=== PATIENT | female | born 1940 | race Two or more races ===

== ENCOUNTER 2022-12-06 18:32 | Emergency (ER) | payer OTHER ==
[~2022-12-06] VITALS: Ht 160 cm; Wt 61.2 kg
[2022-12-06] MEDS ORDERED: OMEPRAZOLE20 MG PO (18:59)
[2022-12-06] MEDS ORDERED: METHOTREXATE2.5 MG PO (18:59)
[2022-12-06] MEDS ORDERED: FOLIC ACID1 MG PO (18:59)
[2022-12-06] MEDS ORDERED: RAYOS5 MG PO (19:00)
[2022-12-06 20:51] LABS: HEMOGLOBIN 15.5 g/dL (12.0-15.00); MEAN CELL VOLUME 89.4 fL (80.00-100.00); MEAN CORPUSCULAR HEMOGLOBIN 29.5 pg (27.00-32.0); RED BLOOD COUNT 5.26 M/uL (4.00-6.00); RED CELL DISTRIBUTION WIDTH 17.3 % (11.5-14.5)
[2022-12-06 21:07] LABS: PLATELET COUNT 118 K/uL (150-450)
[2022-12-06 21:25] LABS: CREATININE SERUM 0.89 mg/dL (0.55-1.02); GFR 60.72; POTASSIUM 4.51 mEq/L (3.5-5.1)
[2022-12-06 22:05] LABS: ABG PH 7.456 (7.35-7.45); ABG PO2 89.4 mmHg (80-100); ABG pCO2 31.5 mmHg (35-45)
[2022-12-06 22:06] LABS: BASE EXCESS -1.2 mmol/l; BICARBONATE 21.7 mmol/l (23-25); SaO2 97.3 %; Tco2 22.6 mmol/l
[2022-12-06 22:07] LABS: allen test NO SATISFACTORY; o2 21 %; puncture site RADIAL LEFT
== END 2022-12-06 22:50 | disposition home or self-care (01) ==
LOC: ER 18:32
PROVIDERS: General Practice
DX: J10.1 Influenza due to other identified influenza virus with other respiratory manifestations (principal); Z88.8 Allergy status to other drugs, medicaments and biological substances; Z20.822 Contact with and (suspected) exposure to COVID-19
CPT/HCPCS: 36415; 71046; 71250; 82803; 94640; 96365; 99284; J0696; J2930

== ENCOUNTER 2023-12-12 07:04 | Inpatient (IN) | payer OTHER ==
[~2023-12-12] VITALS: Ht 167.6 cm; Wt 72.6 kg
[~2023-12-12 07:04] MED LIST: FOLIC ACID1 MG PO; METHOTREXATE2.5 MG PO; OMEPRAZOLE20 MG PO; RAYOS5 MG PO
[2023-12-12] MEDS ORDERED: 0.9 % SODIUM CHLORIDE 1,000 ML IV STA (07:28)
--- NOTE | 2023-12-12 07:29 | NUR ---
SE RECIBE PACIENTE FEMENINA LETARGICA EN AMBULANCIA EN COMPANIA DE FAMILIAR EL CUAL INDICA QUE ESTABA BANANDO LA PACIENTE Y ESTA SUFRIO DESMAYO. REFIERE QUE PACIENTE LUEGO DE LO SUCEDIDO COMENZO CON DIFICULTAD AL RESPIRAR. FAMILIAR INDICA QUE PACIENTE NO PRESENTABA SIGNOS NI SINTOMAS DE ENFERMEDAD EN LOS ULTIMOS ORTIZ. PACIENTE AL MOMENTO DE LA LLEGADA A ER SE ENCUENTRA CON JUNI NON REBREATHING MASK AL 100%. SE OBSERVA RESPIRANDO CON USO DE MUSCULOS ACCESORIOS. SE UBICA A PACIENTE EN UNIDAD DE DOLOR DE PECHO, SE CONECTA A MONITOR CARDIACO Y OXIMETRIA DE PULSO.
--- NOTE | 2023-12-12 07:40 | NUR ---
EVALUA PTE. SE ORIENTA A FAMILIAR SOBRE TRATAMIENTO MEDICO, REFIERE ENTENDER. SE REALIZAN MUESTRAS DE LABORATORIO BAJO MEDIDAS ASEPTICAS. SE ADMINISTRA IV'S MINO ORDEN MEDICA. SE INSERTA SONDA URINARIA BAJO MEDIDAS ESTERILES. SE NOTIFICA ABG Y GARY X.
[2023-12-12 07:58] LABS: HEMATOCRIT 47.7 % (36.0-45.00); HEMOGLOBIN 15.3 g/dL (12.0-15.00); MEAN CELL VOLUME 89.3 fL (80.00-100.00); MEAN CORPUSCULAR HEMOGLOBIN 28.7 pg (27.00-32.0); MEAN CORPUSCULAR HGB CONC 32.1 g/dl (32.0-36.0); PLATELET COUNT 176 K/uL (150-450); RED BLOOD COUNT 5.34 M/uL (4.00-6.00)
[2023-12-12 08:15] LABS: ALBUMIN 2.6 gm/dL (3.4-5.0); BILIRUBIN TOTAL 2.34 mg/dL (0.3-1.2); CALCIUM 9.3 mg/dL (8.5-10.1); CREATININE SERUM 1.77 mg/dL (0.55-1.02); GFR 27.4; GLOBULINA 3.8 G/DL (2.4-3.5); POTASSIUM 4.52 mEq/L (3.5-5.1); TOTAL PROTEIN 6.4 gm/dL (6.4-8.2)
[2023-12-12 08:17] LABS: INR 1.15; PARTIAL THROMBOPLASTIN TIME 25.3 SECONDS (22.0-34.0); PROTHROMBIN TIME 12.4 SECONDS (9.0-11.5)
[2023-12-12] MEDS ORDERED: PIPERACILLIN/TAZOBACTAM SODIUM 3.375 GM VIAL IV STA (08:23)
[2023-12-12] MEDS ORDERED: LEVALBUTEROL HCL 1.25 MG/3 ML SOLUTION IH STA (08:24)
--- NOTE | 2023-12-12 08:30 | NUR ---
RE-EVALUA PACIENTE. SE ORIENTA A FAMILIAR SOBRE TX MEDICO, REFIERE ENTENDER. SE ADMINISTRAN MEDICAMENTOS MINO ORDEN MEDICA. SE MANTIENE BAJO OBSERVACION.
[2023-12-12] MEDS ORDERED: METHYLPREDNISOLONE SOD SUCC 125 MG VIAL IV STA (08:31)
[2023-12-12 09:04] LABS: ABG PH 7.372 (7.35-7.45); BASE EXCESS -7.3 mmol/l; BICARBONATE 16.4 mmol/l (23-25); SaO2 97.2 %; Tco2 17.3 mmol/l
[2023-12-12 09:08] LABS: PH,URINE 5.5 (5.0-8.0); URINE APPEARANCE Cloudy; URINE BILIRRUBIN Small (NEGATIVE); URINE COLOR Dark Yellow; URINE GLUCOSE Negative (NEGATIVE); URINE KETONE Trace (NEGATIVE); URINE LEUKOCYTE Small; URINE NITRATE Negative; URINE PROTEIN 30 (NEGATIVE)
[2023-12-12] MEDS ORDERED: SODIUM BICARBONATE 1 MEQ/ML DISP.SYRIN 50ML IV STA (09:08)
[2023-12-12 09:10] LABS: URINE BACTERIA 45.3 uL (0.0-1933); URINE CAST 8.55 uL (0.0-1.40); URINE RBC 50.5 uL (0.0-20.8); URINE WBC 10.3 uL (0.0-23.2)
[2023-12-12 09:26] LABS: URINE BLOOD Trace
[2023-12-12] MEDS ORDERED: VANCOMYCIN HCL 1,000 MG VIAL IV STA (09:47)
[2023-12-12 10:49] LABS: allen test SATISFACTORY; o2 32 %; puncture site RADIAL LEFT
--- NOTE | 2023-12-12 11:15 | NUR ---
SE TRASLADA PACIENTE A ESTUDIO (CT).PACIENTE TOLERA SIN CAMBIOS EN CONDICION MEDICA.
--- NOTE | 2023-12-12 14:37 | NUR ---
SE RECIBE PTE ALERTA Y ACTIVA EN COMPANIA DE FAMILIAR EN CAMA CON BARANDAS ELEVADAS,CONECTADA A MONITOR CARDIACO Y OXIMETRIA,NO PRESENTA DIFICULTAD RESP CON CANULA NASAL @ 2LTS.NO REFIERE DOLOR,AREAS DE VENOPUNCION PATENTES Y LIBRES DE EDEMA CON FLUIDOS DE MANTENIMIENTO BAJANDO SIN DIFICULTAD.GARZA CON ORINA AMARILLA INTENSA Y SEDIMENTACION.SE ELSIE S/V Y SE CIERRA BAJO OBSERVACION POR CAMBIOS.PENDIENTE A EVALUACION DE MEDICINA INTERNA.
--- NOTE | 2023-12-12 14:44 | NUR ---
PTE CON DOCUMENTO DNR/DNI FIRMADO.
[2023-12-12 16:54] LABS: HEMATOCRIT 44.9 % (36.0-45.00); HEMOGLOBIN 14.6 g/dL (12.0-15.00); MEAN CORPUSCULAR HEMOGLOBIN 28.7 pg (27.00-32.0); MEAN CORPUSCULAR HGB CONC 32.6 g/dl (32.0-36.0); RED CELL DISTRIBUTION WIDTH 19.7 % (11.5-14.5)
[2023-12-12 17:08] LABS: PLATELET COUNT 92 K/uL (150-450)
[2023-12-12] MEDS ORDERED: MEROPENEM 500 MG/VIAL VIAL IV SCH (17:13)
[2023-12-12] MEDS ORDERED: ONDANSETRON HCL 4 MG in 0.9 % SODIUM CHLORIDE 50 ML IV PRN (17:15)
[2023-12-12] MEDS ORDERED: 0.9 % SODIUM CHLORIDE 1,000 ML IV SCH (17:15)
[2023-12-12] MEDS ORDERED: MEPERIDINE HCL/PF 25 MG/ML VIAL IM PRN (17:15)
[2023-12-12] MEDS ORDERED: ACETAMINOPHEN 500 MG GEL..CAP PO PRN (17:15)
[2023-12-12 19:56] VITALS: BP 126/60; O2SAT 96
[2023-12-13] VITALS (11 sets, daily range): BP systolic 90–139; BP diastolic 47–70; O2SAT 94–98
[2023-12-13] MEDS ORDERED: PREDNISONE 5 MG TABLET PO SCH (09:00)
[2023-12-13] MEDS ORDERED: VANCOMYCIN HCL 500 MG VIAL IU SCH (09:00)
[2023-12-13] MEDS ORDERED: ENOXAPARIN SODIUM 30 MG/0.3 ML SYRINGE SUBCUTANEO SCH (09:00)
[2023-12-13] MEDS ORDERED: PANTOPRAZOLE SODIUM 40 MG/VIAL VIAL IV SCH (09:00)
[2023-12-13 12:37] LABS: ALBUMIN 1.5 gm/dL (3.4-5.0); BILIRUBIN TOTAL 1.42 mg/dL (0.3-1.2); BILIRUBIN,CONJUGATED 1.03 mg/dL (0.0-0.2); BILIRUBIN,UNCONJUGATED 0.39 mg/dL (0.0-0.6); MAGNESIUM 1.6 mg/dL (1.8-2.4); PHOSPHOROUS 2.8 mg/dL (2.5-4.9); TOTAL PROTEIN 4.1 gm/dL (6.4-8.2)
[2023-12-13 12:40] LABS: C-REACTIVE PROTEIN 15.6 MG/DL (0.00-0.29)
[2023-12-13 13:56] LABS: TSH 0.815 uIU/mL (0.358-3.74)
[2023-12-14 01:54] VITALS: BP 116/69; O2SAT 99
[2023-12-14 06:55] LABS: HEMATOCRIT 34.3 % (36.0-45.00); HEMOGLOBIN 11.2 g/dL (12.0-15.00); MEAN CELL VOLUME 88.2 fL (80.00-100.00); MEAN CORPUSCULAR HEMOGLOBIN 28.6 pg (27.00-32.0); MEAN CORPUSCULAR HGB CONC 32.5 g/dl (32.0-36.0); RED CELL DISTRIBUTION WIDTH 19.4 % (11.5-14.5)
[2023-12-14 07:04] LABS: ALBUMIN 1.7 gm/dL (3.4-5.0); BILIRUBIN TOTAL 1.43 mg/dL (0.3-1.2); CREATININE SERUM 0.55 mg/dL (0.55-1.02); GFR 105.56; POTASSIUM 3.48 mEq/L (3.5-5.1); TOTAL PROTEIN 4.7 gm/dL (6.4-8.2)
[2023-12-14 07:17] LABS: PLATELET COUNT 73 K/uL (150-450)
[2023-12-14 07:30] LABS: C-REACTIVE PROTEIN 15.6 MG/DL (0.00-0.29)
[2023-12-14] MEDS ORDERED: DEXTROSE 5 %-0.45 % SOD CHLORD 1,000 ML IV SCH (07:45)
[2023-12-14 09:26] VITALS: BP 114/76; O2SAT 100
[2023-12-14] MEDS ORDERED: MEROPENEM 500 MG/VIAL VIAL IV SCH (14:00)
[2023-12-14 14:31] LABS: PLATELET ESTIMATE DECREASED (NORMAL)
[2023-12-14 15:51] VITALS: BP 125/77; O2SAT 98
[2023-12-14] MEDS ORDERED: POTASSIUM PHOS,M-BASIC-D-BASIC 18 MM in 0.9 % SODIUM CHLORIDE 250 ML IV ONE (16:00)
[2023-12-14 16:54] LABS: LIPASE 20 U/L (13-75)
[2023-12-14 17:20] LABS: AMYLASE 17 U/L (25-115)
[2023-12-14 23:44] VITALS: BP 122/79; O2SAT 100
[2023-12-15 09:07] VITALS: BP 128/47; O2SAT 99
[2023-12-15 15:58] VITALS: O2SAT 100
[2023-12-15 16:52] VITALS: BP 145/70
[2023-12-15 19:12] VITALS: O2SAT 90
[2023-12-16] VITALS (7 sets, daily range): BP systolic 110–139; BP diastolic 69–73; O2SAT 97–100
[2023-12-16 08:41] LABS: HEMATOCRIT 35.4 % (36.0-45.00); HEMOGLOBIN 11.6 g/dL (12.0-15.00); MEAN CELL VOLUME 87.9 fL (80.00-100.00); MEAN CORPUSCULAR HEMOGLOBIN 28.9 pg (27.00-32.0); MEAN CORPUSCULAR HGB CONC 32.9 g/dl (32.0-36.0); RED BLOOD COUNT 4.03 M/uL (4.00-6.00); RED CELL DISTRIBUTION WIDTH 19.7 % (11.5-14.5)
[2023-12-16 08:43] LABS: PLATELET COUNT 76 K/uL (150-450)
[2023-12-16 08:50] LABS: ALBUMIN 1.8 gm/dL (3.4-5.0); BILIRUBIN TOTAL 1.6 mg/dL (0.3-1.2); CALCIUM 7.6 mg/dL (8.5-10.1); CREATININE SERUM 0.41 mg/dL (0.55-1.02); GFR 148.15; GLOBULINA 2.5 G/DL (2.4-3.5); MAGNESIUM 1.7 mg/dL (1.8-2.4); POTASSIUM 3.88 mEq/L (3.5-5.1); TOTAL PROTEIN 4.3 gm/dL (6.4-8.2)
[2023-12-16] MEDS ORDERED: POTASSIUM PHOS,M-BASIC-D-BASIC 45mM/15ml VIAL IV NR (12:00)
[2023-12-17] VITALS (7 sets, daily range): BP systolic 99–130; BP diastolic 79–80; O2SAT 95–100
[2023-12-17 09:02] LABS: HEMATOCRIT 33.9 % (36.0-45.00); HEMOGLOBIN 10.9 g/dL (12.0-15.00); MEAN CELL VOLUME 89.2 fL (80.00-100.00); MEAN CORPUSCULAR HEMOGLOBIN 28.6 pg (27.00-32.0); RED CELL DISTRIBUTION WIDTH 19.5 % (11.5-14.5)
[2023-12-17 09:55] LABS: PLATELET COUNT 94 K/uL (150-450)
[2023-12-17 10:05] LABS: ALBUMIN 1.7 gm/dL (3.4-5.0); BILIRUBIN TOTAL 1.29 mg/dL (0.3-1.2); CALCIUM 7.6 mg/dL (8.5-10.1); CREATININE SERUM 0.49 mg/dL (0.55-1.02); GFR 120.61; GLOBULINA 2.4 G/DL (2.4-3.5); MAGNESIUM 1.6 mg/dL (1.8-2.4); PHOSPHOROUS 2.3 mg/dL (2.5-4.9); POTASSIUM 4.23 mEq/L (3.5-5.1); TOTAL PROTEIN 4.1 gm/dL (6.4-8.2)
[2023-12-17] MEDS ORDERED: MAGNESIUM SULFATE 1,000 MG in 0.9 % SODIUM CHLORIDE 50 ML IV ONE (19:45)
[2023-12-17] MEDS ORDERED: POTASSIUM PHOS,M-BASIC-D-BASIC 9 MM in 0.9 % SODIUM CHLORIDE 250 ML IV ONE (19:45)
[2023-12-18] VITALS (8 sets, daily range): BP systolic 105–140; BP diastolic 68–84; O2SAT 98–100
[2023-12-19] VITALS (9 sets, daily range): BP systolic 125–140; BP diastolic 77–86; O2SAT 93–100
[2023-12-19] MEDS ORDERED: LEVALBUTEROL HCL 0.63 MG/3 ML SOLUTION IH STA ×2 (07:47→19:05)
[2023-12-19] MEDS ORDERED: LEVALBUTEROL HCL 0.63 MG/3 ML SOLUTION IH SCH (08:00)
[2023-12-19] MEDS ORDERED: FUROsemide 20 MG/2 ML VIAL IV STA (08:34)
[2023-12-19 09:41] LABS: ABG pCO2 32.2 mmHg (35-45); BASE EXCESS 0.1 mmol/l; BICARBONATE 22.9 mmol/l (23-25); SaO2 97.9 %; Tco2 23.9 mmol/l
[2023-12-19 09:42] LABS: allen test SATISFACTORY; o2 32 %; puncture site RADIAL RIGHT
[2023-12-19 15:22] LABS: HEMATOCRIT 35.9 % (36.0-45.00); HEMOGLOBIN 11.6 g/dL (12.0-15.00); MEAN CELL VOLUME 87.5 fL (80.00-100.00); MEAN CORPUSCULAR HEMOGLOBIN 28.2 pg (27.00-32.0); MEAN CORPUSCULAR HGB CONC 32.2 g/dl (32.0-36.0); PLATELET COUNT 140 K/uL (150-450); RED BLOOD COUNT 4.11 M/uL (4.00-6.00)
[2023-12-19 15:58] LABS: ALBUMIN 1.9 gm/dL (3.4-5.0); BILIRUBIN TOTAL 1.83 mg/dL (0.3-1.2); CALCIUM 7.9 mg/dL (8.5-10.1); CREATININE SERUM 0.54 mg/dL (0.55-1.02); GFR 107.82; GLOBULINA 2.8 G/DL (2.4-3.5); MAGNESIUM 1.6 mg/dL (1.8-2.4); PHOSPHOROUS 2.6 mg/dL (2.5-4.9); POTASSIUM 4.25 mEq/L (3.5-5.1); TOTAL PROTEIN 4.7 gm/dL (6.4-8.2)
[2023-12-19 16:07] LABS: C-REACTIVE PROTEIN 8.87 MG/DL (0.00-0.29)
[2023-12-19] MEDS ORDERED: VANCOMYCIN HCL 1,000 MG VIAL IV SCH (17:00)
[2023-12-19] MEDS ORDERED: MAGNESIUM SULFATE IN WATER 4 GM/100 ML PIGGYBACK IV ONE (19:30)
[2023-12-20] VITALS (9 sets, daily range): BP systolic 113–145; BP diastolic 68–80; O2SAT 97–100
[2023-12-20] MEDS ORDERED: LEVALBUTEROL HCL 0.63 MG/3 ML SOLUTION IH SCH
[2023-12-20 11:17] LABS: HEMATOCRIT 31.8 % (36.0-45.00); HEMOGLOBIN 10.2 g/dL (12.0-15.00); MEAN CELL VOLUME 88.9 fL (80.00-100.00); MEAN CORPUSCULAR HEMOGLOBIN 28.5 pg (27.00-32.0); MEAN CORPUSCULAR HGB CONC 32.1 g/dl (32.0-36.0); PLATELET COUNT 162 K/uL (150-450); RED BLOOD COUNT 3.57 M/uL (4.00-6.00); RED CELL DISTRIBUTION WIDTH 19.3 % (11.5-14.5)
[2023-12-20 11:36] LABS: ALBUMIN 1.7 gm/dL (3.4-5.0); BILIRUBIN TOTAL 1.59 mg/dL (0.3-1.2); CALCIUM 7.5 mg/dL (8.5-10.1); CREATININE SERUM 0.46 mg/dL (0.55-1.02); GFR 129.73; GLOBULINA 2.5 G/DL (2.4-3.5); MAGNESIUM 2.1 mg/dL (1.8-2.4); PHOSPHOROUS 2.4 mg/dL (2.5-4.9); POTASSIUM 3.81 mEq/L (3.5-5.1); TOTAL PROTEIN 4.2 gm/dL (6.4-8.2)
[2023-12-20] MEDS ORDERED: FUROsemide 20 MG/2 ML VIAL IV SCH (13:25)
[2023-12-20] MEDS ORDERED: MAGNESIUM SULFATE/D5W 100 ML IV NR (16:15)
[2023-12-21] VITALS (8 sets, daily range): BP systolic 117–151; BP diastolic 78–122; O2SAT 97–100
[2023-12-21] MEDS ORDERED: MAGNESIUM SULFATE/D5W 100 ML IV NR (15:15)
[2023-12-21] MEDS ORDERED: CHLORHEXIDINE GLUCONATE 15ML BRUSH KIT MM SCH (17:00)
[2023-12-21] MEDS ORDERED: EPINEPHRINE HCL/PF 1 MG/ML AMPUL IV PUSH ONE ×2 (17:00)
[2023-12-21] MEDS ORDERED: SODIUM BICARBONATE 1 MEQ/ML DISP.SYRIN 50ML IV ONE (17:00)
[2023-12-21] MEDS ORDERED: PROPOFOL 100 ML IV SCH ×2 (17:00→17:30)
[2023-12-21] MEDS ORDERED: PROPOFOL 10 MG/1 ML VIAL 50ML IV SCH (17:00)
[2023-12-21] MEDS ORDERED: POLYVINYL ALCOHOL 15 ML DROPS OP SCH (17:00)
[2023-12-21 19:24] LABS: ABG PH 7.343 (7.35-7.45); ABG PO2 113.3 mmHg (80-100); BICARBONATE 23.9 mmol/l (23-25); Tco2 25.3 mmol/l
[2023-12-21 19:25] LABS: allen test NO SATISFACTORY; o2 100 %; puncture site RADIAL RIGHT
[2023-12-21] MEDS ORDERED: LORATADINE 10 MG TABLET PO SCH (21:00)
[2023-12-22] VITALS (9 sets, daily range): BP systolic 110–180; BP diastolic 64–90; O2SAT 99–100
[2023-12-22] MEDS ORDERED: METHYLPREDNISOLONE SOD SUCC 40 MG VIAL IV SCH (13:53)
[2023-12-22 14:06] LABS: ABG PH 7.418 (7.35-7.45); ABG pCO2 35.1 mmHg (35-45); BASE EXCESS -1.7 mmol/l; BICARBONATE 22.2 mmol/l (23-25); Tco2 23.2 mmol/l; allen test SATISFACTORY; o2 100 %; puncture site RADIAL LEFT
[2023-12-22] MEDS ORDERED: RINGERS SOLUTION,LACTATED 1,000 ML IV SCH (15:45)
[2023-12-22 21:30] LABS: HEMATOCRIT 36.1 % (36.0-45.00); HEMOGLOBIN 11.2 g/dL (12.0-15.00); MEAN CELL VOLUME 88.7 fL (80.00-100.00); MEAN CORPUSCULAR HEMOGLOBIN 27.4 pg (27.00-32.0); MEAN CORPUSCULAR HGB CONC 30.9 g/dl (32.0-36.0); RED BLOOD COUNT 4.07 M/uL (4.00-6.00); RED CELL DISTRIBUTION WIDTH 19.1 % (11.5-14.5)
[2023-12-22 21:31] LABS: PLATELET COUNT 118 K/uL (150-450)
[2023-12-22 22:02] LABS: ALBUMIN 1.6 gm/dL (3.4-5.0); BILIRUBIN TOTAL 2.12 mg/dL (0.3-1.2); CALCIUM 8.1 mg/dL (8.5-10.1); CREATININE SERUM 1.87 mg/dL (0.55-1.02); GFR 25.71; GLOBULINA 3.3 G/DL (2.4-3.5); POTASSIUM 4.88 mEq/L (3.5-5.1); TOTAL PROTEIN 4.9 gm/dL (6.4-8.2)
[2023-12-22 22:09] LABS: BILIRUBIN,CONJUGATED 1.01 mg/dL (0.0-0.2); BILIRUBIN,UNCONJUGATED 1.11 mg/dL (0.0-0.6)
[2023-12-23] VITALS (11 sets, daily range): BP systolic 60–152; BP diastolic 40–90; O2SAT 90–100
[2023-12-23] MEDS ORDERED: NOREPINEPHRINE BITARTRATE 1 MG/ML AMPUL IV SCH (04:15)
[2023-12-23 11:01] LABS: HEMOGLOBIN 11.4 g/dL (12.0-15.00); MEAN CELL VOLUME 86.2 fL (80.00-100.00); MEAN CORPUSCULAR HGB CONC 32.5 g/dl (32.0-36.0); PLATELET COUNT 207 K/uL (150-450); RED BLOOD COUNT 4.06 M/uL (4.00-6.00); RED CELL DISTRIBUTION WIDTH 19.3 % (11.5-14.5)
[2023-12-23 11:15] LABS: ALBUMIN 1.8 gm/dL (3.4-5.0); BILIRUBIN TOTAL 1.87 mg/dL (0.3-1.2); CALCIUM 7.8 mg/dL (8.5-10.1); CREATININE SERUM 1.95 mg/dL (0.55-1.02); GFR 24.5; GLOBULINA 3.2 G/DL (2.4-3.5); MAGNESIUM 2.2 mg/dL (1.8-2.4); POTASSIUM 4.32 mEq/L (3.5-5.1)
[2023-12-23 11:22] LABS: CKMB 1.4 NG/ML (0.5-3.6)
[2023-12-23] MEDS ORDERED: HYDROCORTISONE SODIUM SUCC/PF 100 MG VIAL IV STA (12:14)
[2023-12-23] MEDS ORDERED: VASOPRESSIN 20 UNITS in 0.9 % SODIUM CHLORIDE 250 ML IV SCH (12:15)
[2023-12-23] MEDS ORDERED: METRONIDAZOLE/SODIUM CHLORIDE 100 ML IV SCH ×2 (12:26→13:00)
[2023-12-23 12:27] LABS: ABG PH 7.432 (7.35-7.45); ABG PO2 177.6 mmHg (80-100); ABG pCO2 29.1 mmHg (35-45); BASE EXCESS -3.9 mmol/l; BICARBONATE 18.9 mmol/l (23-25); SaO2 99.6 %; Tco2 19.8 mmol/l
[2023-12-23 12:28] LABS: allen test SATISFACTORY; o2 70 %; puncture site RADIAL LEFT
[2023-12-23] MEDS ORDERED: 0.9 % SODIUM CHLORIDE 1,000 ML IV SCH (12:30)
[2023-12-23] MEDS ORDERED: LINEZOLID IN DEXTROSE 5% 600 MG/300 ML PIGGYBAG IV NR (13:00)
[2023-12-23] MEDS ORDERED: NOREPINEPHRINE BITARTRATE 8 MG in DEXTROSE 5 % IN WATER 250 ML IV SCH (13:00)
[2023-12-23] MEDS ORDERED: DIPHENHYDRAMINE HCL 50 MG/ML VIAL 1ML IV SCH (15:30)
[2023-12-23] MEDS ORDERED: levoFLOXacin IN DEXTROSE 5 % 150 ML IV SCH (15:30)
[2023-12-23] MEDS ORDERED: MEROPENEM 500 MG/VIAL VIAL IV SCH ×2 (17:00→21:00)
[2023-12-23] MEDS ORDERED: HYDROCORTISONE SODIUM SUCC/PF 50 MG/ML ML IV SCH (20:00)
[2023-12-23] MEDS ORDERED: LINEZOLID IN DEXTROSE 5% 300 ML IV SCH (21:00)
[2023-12-24] VITALS (10 sets, daily range): BP systolic 120–168; BP diastolic 70–94; O2SAT 92–100
[2023-12-25] VITALS (7 sets, daily range): BP systolic 131–150; BP diastolic 72–80; O2SAT 97–100
[2023-12-25] MEDS ORDERED: ENOXAPARIN SODIUM 60 MG/0.6 ML SYRINGE SUBCUTANEO SCH (09:00)
[2023-12-25 10:03] LABS: CORTISOL 27.59 ug/dl
[2023-12-25 10:10] LABS: PROCALCITONIN 20.43 ng/ml (0.020-0.080)
[2023-12-25 11:09] LABS: ABG PH 7.333 (7.35-7.45); ABG PO2 417.7 mmHg (80-100); ABG pCO2 34.1 mmHg (35-45)
[2023-12-25 11:10] LABS: BASE EXCESS -7.2 mmol/l; BICARBONATE 17.7 mmol/l (23-25); Tco2 18.8 mmol/l; allen test SATISFACTORY; o2 70 %; puncture site RADIAL LEFT
[2023-12-25 16:06] LABS: HEMATOCRIT 31.9 % (36.0-45.00); HEMOGLOBIN 10.1 g/dL (12.0-15.00); MEAN CELL VOLUME 87.2 fL (80.00-100.00); MEAN CORPUSCULAR HEMOGLOBIN 27.7 pg (27.00-32.0); MEAN CORPUSCULAR HGB CONC 31.8 g/dl (32.0-36.0); PLATELET COUNT 165 K/uL (150-450); RED BLOOD COUNT 3.66 M/uL (4.00-6.00); RED CELL DISTRIBUTION WIDTH 18.4 % (11.5-14.5)
[2023-12-25 16:26] LABS: ALBUMIN 1.7 gm/dL (3.4-5.0); BILIRUBIN TOTAL 1.89 mg/dL (0.3-1.2); CALCIUM 7.7 mg/dL (8.5-10.1); CREATININE SERUM 1.83 mg/dL (0.55-1.02); GFR 26.36; POTASSIUM 4.22 mEq/L (3.5-5.1); TOTAL PROTEIN 4.7 gm/dL (6.4-8.2)
[2023-12-25 23:19] LABS: PH,URINE 5.5 (5.0-8.0); URINE APPEARANCE Cloudy; URINE BILIRRUBIN Small (NEGATIVE); URINE BLOOD Small; URINE COLOR Dark Yellow; URINE GLUCOSE Negative (NEGATIVE); URINE KETONE Trace (NEGATIVE); URINE LEUKOCYTE Trace; URINE NITRATE Negative
[2023-12-25 23:23] LABS: URINE BACTERIA 154.9 uL (0.0-1933); URINE CAST 10.38 uL (0.0-1.40); URINE EPITHELIAL CELLS 29.6 uL (0.0-38.8); URINE RBC 86.2 uL (0.0-20.8); URINE WBC 60.1 uL (0.0-23.2)
[2023-12-26] VITALS (15 sets, daily range): BP systolic 99–154; BP diastolic 65–106; O2SAT 90–100
[2023-12-26 00:21] LABS: URINE PROTEIN 100 (NEGATIVE)
[2023-12-26 05:08] LABS: MEAN CELL VOLUME 87.5 fL (80.00-100.00); MEAN CORPUSCULAR HGB CONC 32.3 g/dl (32.0-36.0); RED BLOOD COUNT 3.77 M/uL (4.00-6.00); RED CELL DISTRIBUTION WIDTH 18.7 % (11.5-14.5)
[2023-12-26 05:34] LABS: HEMOGLOBIN 10.6 g/dL (12.0-15.00); MEAN CORPUSCULAR HEMOGLOBIN 28.1 pg (27.00-32.0); PLATELET COUNT 131 K/uL (150-450)
[2023-12-26 05:38] LABS: ALBUMIN 1.7 gm/dL (3.4-5.0); BILIRUBIN TOTAL 2.14 mg/dL (0.3-1.2); CALCIUM 7.7 mg/dL (8.5-10.1); CREATININE SERUM 1.95 mg/dL (0.55-1.02); GFR 24.5; GLOBULINA 2.9 G/DL (2.4-3.5); MAGNESIUM 1.7 mg/dL (1.8-2.4); PHOSPHOROUS 3.9 mg/dL (2.5-4.9); POTASSIUM 4.47 mEq/L (3.5-5.1); TOTAL PROTEIN 4.6 gm/dL (6.4-8.2)
[2023-12-26 11:59] LABS: ABG PH 7.421 (7.35-7.45); ABG PO2 284.3 mmHg (80-100); ABG pCO2 24.8 mmHg (35-45); BASE EXCESS -6.7 mmol/l; BICARBONATE 15.8 mmol/l (23-25); SaO2 99.9 %; Tco2 16.5 mmol/l; allen test SATISFACTORY; o2 50 %; puncture site RADIAL RIGHT
[2023-12-26] MEDS ORDERED: SODIUM CHLORIDE 0.45 % 1,000 ML IV SCH (14:00)
[2023-12-26] MEDS ORDERED: MAGNESIUM SULFATE/D5W 100 ML IV NR (14:00)
[2023-12-27] VITALS (23 sets, daily range): BP systolic 79–131; BP diastolic 42–92; O2SAT 97–100
[2023-12-27 08:12] LABS: HEMATOCRIT 30.7 % (36.0-45.00); MEAN CELL VOLUME 87.1 fL (80.00-100.00); MEAN CORPUSCULAR HEMOGLOBIN 27.7 pg (27.00-32.0); MEAN CORPUSCULAR HGB CONC 31.8 g/dl (32.0-36.0); RED BLOOD COUNT 3.53 M/uL (4.00-6.00); RED CELL DISTRIBUTION WIDTH 18.8 % (11.5-14.5)
[2023-12-27 08:25] LABS: PLATELET COUNT 96 K/uL (150-450)
[2023-12-27 08:26] LABS: HEMOGLOBIN 9.8 g/dL (12.0-15.00)
[2023-12-27 08:29] LABS: ALBUMIN 1.6 gm/dL (3.4-5.0); BILIRUBIN TOTAL 2.38 mg/dL (0.3-1.2); CALCIUM 7.6 mg/dL (8.5-10.1); CREATININE SERUM 1.82 mg/dL (0.55-1.02); GFR 26.53; GLOBULINA 2.5 G/DL (2.4-3.5); PHOSPHOROUS 3.8 mg/dL (2.5-4.9); POTASSIUM 4.12 mEq/L (3.5-5.1); TOTAL PROTEIN 4.1 gm/dL (6.4-8.2)
[2023-12-27 10:40] LABS: ABG PH 7.385 (7.35-7.45); ABG PO2 145.3 mmHg (80-100); ABG pCO2 26.1 mmHg (35-45); BASE EXCESS -7.9 mmol/l; BICARBONATE 15.2 mmol/l (23-25); SaO2 99.1 %; allen test SATISFACTORY; o2 35 %; puncture site RADIAL RIGHT
[2023-12-27] MEDS ORDERED: 0.9 % SODIUM CHLORIDE 1,000 ML IV SCH (14:30)
[2023-12-27] MEDS ORDERED: AMIODARONE HCL 50 MG/ML AMPUL IV SCH (23:00)
[2023-12-28] VITALS (19 sets, daily range): BP systolic 74–114; BP diastolic 35–87; O2SAT 97–100
[2023-12-28 07:19] LABS: HEMATOCRIT 26.9 % (36.0-45.00); MEAN CELL VOLUME 87.3 fL (80.00-100.00); MEAN CORPUSCULAR HGB CONC 32.5 g/dl (32.0-36.0); RED BLOOD COUNT 3.08 M/uL (4.00-6.00)
[2023-12-28 07:21] LABS: MEAN CORPUSCULAR HEMOGLOBIN 28.2 pg (27.00-32.0); PLATELET COUNT 88 K/uL (150-450)
[2023-12-28 07:22] LABS: HEMOGLOBIN 8.7 g/dL (12.0-15.00); RED CELL DISTRIBUTION WIDTH 19.6 % (11.5-14.5)
[2023-12-28 08:10] LABS: MANUAL PLATELET COUNT 214
[2023-12-28 08:54] LABS: ALBUMIN 1.4 gm/dL (3.4-5.0); BILIRUBIN TOTAL 2.12 mg/dL (0.3-1.2); CALCIUM 7.3 mg/dL (8.5-10.1); CREATININE SERUM 1.96 mg/dL (0.55-1.02); GFR 24.36; GLOBULINA 2.2 G/DL (2.4-3.5); PHOSPHOROUS 4.1 mg/dL (2.5-4.9); POTASSIUM 4.34 mEq/L (3.5-5.1); TOTAL PROTEIN 3.6 gm/dL (6.4-8.2)
[2023-12-28 10:57] LABS: ABG PO2 174.4 mmHg (80-100); BASE EXCESS -10.5 mmol/l; BICARBONATE 12.1 mmol/l (23-25); SaO2 99.5 %
[2023-12-28 10:58] LABS: Tco2 12.8 mmol/l; allen test SATISFACTORY; o2 35 %; puncture site RADIAL LEFT
[2023-12-28] MEDS ORDERED: PROPOFOL 100 ML IV SCH (11:00)
[2023-12-28] MEDS ORDERED: CITRIC ACID/SODIUM CITRATE 30 ML BLIST.PACK PO SCH (13:00)
[2023-12-28] MEDS ORDERED: PANTOPRAZOLE SODIUM 80 MG IV SCH (18:00)
[2023-12-28] MEDS ORDERED: PANTOPRAZOLE SODIUM 80 MG in 0.9 % SODIUM CHLORIDE 100 ML IV SCH (18:30)
[2023-12-28] MEDS ORDERED: FUROsemide 20 MG/2 ML VIAL IV SCH (20:15)
[2023-12-29] VITALS (22 sets, daily range): BP systolic 66–190; BP diastolic 40–92; O2SAT 90–100
[2023-12-29 08:52] LABS: ABG PH 7.336 (7.35-7.45); ABG PO2 87.2 mmHg (80-100); ABG pCO2 20.3 mmHg (35-45); BASE EXCESS -12.6 mmol/l; BICARBONATE 10.6 mmol/l (23-25); SaO2 95.4 %; Tco2 11.3 mmol/l
[2023-12-29 09:57] LABS: allen test SATISFACTORY; o2 35 %; puncture site RADIAL LEFT
[2023-12-29] MEDS ORDERED: PROPOFOL 100 ML IV SCH (11:00)
[2023-12-29 14:57] LABS: HEMATOCRIT 43.2 % (36.0-45.00); HEMOGLOBIN 14.1 g/dL (12.0-15.00); MEAN CELL VOLUME 87.5 fL (80.00-100.00); MEAN CORPUSCULAR HEMOGLOBIN 28.6 pg (27.00-32.0); MEAN CORPUSCULAR HGB CONC 32.7 g/dl (32.0-36.0); RED BLOOD COUNT 4.94 M/uL (4.00-6.00); RED CELL DISTRIBUTION WIDTH 16.2 % (11.5-14.5)
[2023-12-29 15:39] LABS: PLATELET COUNT 37 K/uL (150-450)
[2023-12-29 15:45] LABS: PLATELET ESTIMATE DECREASED (NORMAL)
[2023-12-29 18:47] LABS: D DIMER 4.77 MG/L; INR 1.71
[2023-12-29] MEDS ORDERED: DEXTROSE 5 % IN WATER 1,000 ML IV SCH (19:15)
[2023-12-29] MEDS ORDERED: SODIUM BICARBONATE 150 MEQ in DEXTROSE 5 % IN WATER 1,000 ML IV SCH (19:15)
[2023-12-29] MEDS ORDERED: MIDAZOLAM HCL 50 MG in 0.9 % SODIUM CHLORIDE 50 ML IV SCH (19:15)
[2023-12-29 19:19] LABS: PARTIAL THROMBOPLASTIN TIME 55.5 SECONDS (22.0-34.0); PROTHROMBIN TIME 17.9 SECONDS (9.0-11.5)
[2023-12-29] MEDS ORDERED: ALBUMIN HUMAN 0.25GM/ML (50ML) VIAL IV SCH (21:01)
[2023-12-30] VITALS (22 sets, daily range): BP systolic 83–130; BP diastolic 50–103; O2SAT 99–100
[2023-12-30 07:29] LABS: PH,URINE 5.5 (5.0-8.0); URINE APPEARANCE Cloudy; URINE BILIRRUBIN Negative (NEGATIVE); URINE BLOOD Large; URINE COLOR Dark Yellow; URINE GLUCOSE Negative (NEGATIVE); URINE KETONE Negative (NEGATIVE); URINE LEUKOCYTE Small; URINE NITRATE Negative; URINE PROTEIN 30 (NEGATIVE); URINE UROBILINOGEN 0.2 E.U./dl
[2023-12-30 07:33] LABS: URINE BACTERIA 103.3 uL (0.0-1933); URINE CAST 13.89 uL (0.0-1.40); URINE EPITHELIAL CELLS 39.5 uL (0.0-38.8); URINE WBC 94.4 uL (0.0-23.2)
[2023-12-30 08:23] LABS: ABG PH 7.352 (7.35-7.45); ABG pCO2 30.3 mmHg (35-45); BASE EXCESS -7.7 mmol/l; BICARBONATE 16.4 mmol/l (23-25); SaO2 99.9 %; Tco2 17.4 mmol/l
[2023-12-30 08:38] LABS: allen test SATISFACTORY; puncture site RADIAL RIGHT
[2023-12-30 08:39] LABS: o2 40 %
[2023-12-30] MEDS ORDERED: ALBUMIN HUMAN 100 ML VIAL IV SCH (13:00)
[2023-12-30 13:21] LABS: INR 1.66
[2023-12-30 14:19] LABS: PARTIAL THROMBOPLASTIN TIME 62.4 SECONDS (22.0-34.0); PROTHROMBIN TIME 17.4 SECONDS (9.0-11.5)
[2023-12-31] VITALS (21 sets, daily range): BP systolic 74–154; BP diastolic 39–92; O2SAT 95–100
[2023-12-31 10:45] LABS: ABG PO2 119.6 mmHg (80-100); ABG pCO2 35.4 mmHg (35-45); BASE EXCESS -6.3 mmol/l; BICARBONATE 18.6 mmol/l (23-25); SaO2 98.2 %; Tco2 19.7 mmol/l
[2023-12-31 10:47] LABS: o2 98 %
[2023-12-31 10:51] LABS: allen test SATISFACTORY; puncture site RADIAL RIGHT
[2024-01-01] VITALS (22 sets, daily range): BP systolic 70–138; BP diastolic 35–92; O2SAT 95–100
[2024-01-01 06:51] LABS: HEMATOCRIT 31.9 % (36.0-45.00); HEMOGLOBIN 11.1 g/dL (12.0-15.00); MEAN CELL VOLUME 83.8 fL (80.00-100.00); MEAN CORPUSCULAR HGB CONC 34.6 g/dl (32.0-36.0); RED BLOOD COUNT 3.81 M/uL (4.00-6.00); RED CELL DISTRIBUTION WIDTH 17.2 % (11.5-14.5)
[2024-01-01 07:26] LABS: PLATELET COUNT 11 K/uL (150-450)
[2024-01-01 07:38] LABS: ALBUMIN 2.2 gm/dL (3.4-5.0); CALCIUM 7.6 mg/dL (8.5-10.1); CREATININE SERUM 2.88 mg/dL (0.55-1.02); GFR 15.62; PHOSPHOROUS 4.2 mg/dL (2.5-4.9)
[2024-01-01 07:41] LABS: POTASSIUM 2.82 mEq/L (3.5-5.1)
[2024-01-01] MEDS ORDERED: POTASSIUM CHLORIDE 20MEQ/100ML H2O PB IV NR (08:15)
[2024-01-01 12:49] LABS: ABG PH 7.404 (7.35-7.45); ABG PO2 106.3 mmHg (80-100); ABG pCO2 27.5 mmHg (35-45); BASE EXCESS -6.2 mmol/l; BICARBONATE 16.8 mmol/l (23-25)
[2024-01-01 12:50] LABS: Tco2 17.7 mmol/l; allen test SATISFACTORY; o2 30 %; puncture site RADIAL LEFT
[2024-01-01] MEDS ORDERED: PANTOPRAZOLE SODIUM 40 MG/VIAL VIAL IV SCH (21:00)
[2024-01-01] MEDS ORDERED: MIDAZOLAM HCL 50 MG in 0.9 % SODIUM CHLORIDE 50 ML IV SCH (22:45)
[2024-01-01 23:45] LABS: HEMATOCRIT 28.3 % (36.0-45.00); HEMOGLOBIN 9.9 g/dL (12.0-15.00); MEAN CORPUSCULAR HEMOGLOBIN 29.3 pg (27.00-32.0); MEAN CORPUSCULAR HGB CONC 34.9 g/dl (32.0-36.0); RED BLOOD COUNT 3.37 M/uL (4.00-6.00); RED CELL DISTRIBUTION WIDTH 17.3 % (11.5-14.5)
[2024-01-02] VITALS (23 sets, daily range): BP systolic 72–127; BP diastolic 36–109; O2SAT 96–100
[2024-01-02 00:26] LABS: PLATELET COUNT 109 K/uL (150-450)
[2024-01-02 07:11] LABS: HEMATOCRIT 30.7 % (36.0-45.00); HEMOGLOBIN 10.3 g/dL (12.0-15.00); MEAN CELL VOLUME 85.5 fL (80.00-100.00); MEAN CORPUSCULAR HEMOGLOBIN 28.7 pg (27.00-32.0); MEAN CORPUSCULAR HGB CONC 33.6 g/dl (32.0-36.0); RED BLOOD COUNT 3.59 M/uL (4.00-6.00)
[2024-01-02 07:27] LABS: ALBUMIN 2.2 gm/dL (3.4-5.0); BILIRUBIN TOTAL 6.71 mg/dL (0.3-1.2); CALCIUM 7.7 mg/dL (8.5-10.1); CREATININE SERUM 3.29 mg/dL (0.55-1.02); GFR 13.36; GLOBULINA 1.6 G/DL (2.4-3.5); MAGNESIUM 1.5 mg/dL (1.8-2.4); PHOSPHOROUS 4.5 mg/dL (2.5-4.9); POTASSIUM 3.48 mEq/L (3.5-5.1); TOTAL PROTEIN 3.8 gm/dL (6.4-8.2)
[2024-01-02 07:53] LABS: PLATELET COUNT 92 K/uL (150-450)
[2024-01-02 10:16] LABS: ABG PH 7.358 (7.35-7.45); ABG pCO2 27.4 mmHg (35-45)
[2024-01-02 10:17] LABS: ABG PO2 48.1 mmHg (80-100); BASE EXCESS -8.7 mmol/l; BICARBONATE 15.1 mmol/l (23-25); SaO2 80.5 %; Tco2 15.9 mmol/l
[2024-01-02 10:18] LABS: allen test SATISFACTORY; o2 30 %; puncture site RADIAL RIGHT
[2024-01-02] MEDS ORDERED: MAGNESIUM SULFATE/D5W 100 ML IV NR (11:00)
[2024-01-02] MEDS ORDERED: HYDROCORTISONE SODIUM SUCC/PF 50 MG/ML ML IV SCH (12:00)
[2024-01-02] MEDS ORDERED: ANIDULAFUNGIN 100 MG VIAL IV NR (16:00)
[2024-01-02] MEDS ORDERED: AMINO ACIDS 4.25%/DEXTROSE 10% 1,000 ML CENTRAL SCH (17:00)
[2024-01-02 18:48] LABS: HEMATOCRIT 24.2 % (36.0-45.00); MEAN CELL VOLUME 84.5 fL (80.00-100.00); MEAN CORPUSCULAR HGB CONC 35.1 g/dl (32.0-36.0); RED BLOOD COUNT 2.87 M/uL (4.00-6.00); RED CELL DISTRIBUTION WIDTH 17.3 % (11.5-14.5)
[2024-01-02 19:23] LABS: HEMOGLOBIN 8.5 g/dL (12.0-15.00); MEAN CORPUSCULAR HEMOGLOBIN 29.6 pg (27.00-32.0); PLATELET COUNT 98 K/uL (150-450)
[2024-01-03] VITALS (18 sets, daily range): BP systolic 92–120; BP diastolic 53–72; O2SAT 100
[2024-01-03 11:55] LABS: ABG PO2 116.4 mmHg (80-100); ABG pCO2 27.2 mmHg (35-45); BASE EXCESS -10.1 mmol/l; Tco2 14.9 mmol/l
[2024-01-03 11:56] LABS: allen test SATISFACTORY; o2 30 %; puncture site RADIAL LEFT
[2024-01-03] MEDS ORDERED: ANIDULAFUNGIN 100 MG VIAL IV SCH (17:00)
[2024-01-04] VITALS (24 sets, daily range): BP systolic 78–114; BP diastolic 49–79; O2SAT 100
[2024-01-04 12:22] LABS: ABG PH 7.257 (7.35-7.45); ABG pCO2 32.3 mmHg (35-45)
[2024-01-04 12:23] LABS: ABG PO2 53.9 mmHg (80-100); BASE EXCESS -11.8 mmol/l; BICARBONATE 14.1 mmol/l (23-25); SaO2 80.2 %; allen test SATISFACTORY; o2 30 %; puncture site RADIAL RIGHT
[2024-01-04 12:54] LABS: ABG PH 7.273 (7.35-7.45); ABG PO2 124.1 mmHg (80-100); ABG pCO2 26.5 mmHg (35-45); BASE EXCESS -13.1 mmol/l; SaO2 97.9 %; Tco2 12.8 mmol/l; allen test SATISFACTORY; o2 30 %; puncture site RADIAL LEFT
[2024-01-05] VITALS (24 sets, daily range): BP systolic 58–130; BP diastolic 37–76; O2SAT 80–100
[2024-01-05 07:53] LABS: HEMOGLOBIN 10.7 g/dL (12.0-15.00); MEAN CELL VOLUME 84.4 fL (80.00-100.00); MEAN CORPUSCULAR HEMOGLOBIN 29.3 pg (27.00-32.0); MEAN CORPUSCULAR HGB CONC 34.7 g/dl (32.0-36.0); RED BLOOD COUNT 3.67 M/uL (4.00-6.00); RED CELL DISTRIBUTION WIDTH 18.4 % (11.5-14.5)
[2024-01-05 08:41] LABS: ALBUMIN 1.8 gm/dL (3.4-5.0); BILIRUBIN TOTAL 6.82 mg/dL (0.3-1.2); CALCIUM 7.3 mg/dL (8.5-10.1); CREATININE SERUM 3.66 mg/dL (0.55-1.02); GFR 11.82; GLOBULINA 1.8 G/DL (2.4-3.5); PHOSPHOROUS 4.5 mg/dL (2.5-4.9); POTASSIUM 3.29 mEq/L (3.5-5.1); TOTAL PROTEIN 3.6 gm/dL (6.4-8.2)
[2024-01-05 08:53] LABS: PLATELET COUNT 29 K/uL (150-450)
[2024-01-05 09:16] LABS: MAGNESIUM 1.4 mg/dL (1.8-2.4)
[2024-01-05 12:18] LABS: ABG pCO2 26.2 mmHg (35-45); BASE EXCESS -16.7 mmol/l; BICARBONATE 9.8 mmol/l (23-25); Tco2 10.6 mmol/l; allen test SATISFACTORY; o2 30 %; puncture site RADIAL RIGHT
[2024-01-05] MEDS ORDERED: SODIUM BICARBONATE 50MEQ/50ML VIAL IV STA (13:40)
[2024-01-05] MEDS ORDERED: 0.9 % SODIUM CHLORIDE 1,000 ML IV SCH ×2 (13:45→17:30)
[2024-01-05] MEDS ORDERED: MAGNESIUM SULFATE IN WATER 50 ML IV NR (14:30)
[2024-01-05] MEDS ORDERED: PHENYLEPHRINE HCL 80 MG in 0.9 % SODIUM CHLORIDE 1,000 ML IV SCH (18:00)
[2024-01-05] MEDS ORDERED: EPINEPHRINE HCL/PF 4 MG in DEXTROSE 5 % IN WATER 250 ML IV SCH (21:00)
[2024-01-06 00:15] LABS: MEAN CELL VOLUME 90.2 fL (80.00-100.00); MEAN CORPUSCULAR HGB CONC 32.8 g/dl (32.0-36.0); RED BLOOD COUNT 2.43 M/uL (4.00-6.00); RED CELL DISTRIBUTION WIDTH 19.3 % (11.5-14.5)
[2024-01-06 00:17] LABS: MEAN CORPUSCULAR HEMOGLOBIN 29.6 pg (27.00-32.0); PLATELET COUNT 117 K/uL (150-450)
[2024-01-06 00:56] LABS: HEMATOCRIT 21.9 % (36.0-45.00); HEMOGLOBIN 7.2 g/dL (12.0-15.00)
== END 2024-01-06 13:58 | disposition expired | DRG 870 ==
LOC: ER 07:04 → ICU-2 17:40 → SEC-K 12-15 11:24 → MEDJ 12-15 13:35 → ICU 12-26 20:35
PROVIDERS: Emergency Medicine; General Practice; Internal Medicine; Internal Medicine Hematology & Oncology; Internal Medicine Infectious Disease; Internal Medicine Nephrology; Internal Medicine Pulmonary Disease; ADMIT Internal Medicine; ATTEND Internal Medicine
PROC: BW40ZZZ Ultrasonography of Abdomen (ICD-10-PCS; 2023-12-12)
PROC: B246ZZZ Ultrasonography of Right and Left Heart (ICD-10-PCS; 2023-12-12)
PROC: 4A12X4Z Monitoring of Cardiac Electrical Activity, External Approach (ICD-10-PCS; 2023-12-12)
PROC: BW21ZZZ Computerized Tomography (CT Scan) of Abdomen and Pelvis (ICD-10-PCS; 2023-12-12)
PROC: 3E0F7GC Introduction of Other Therapeutic Substance into Respiratory Tract, Via Natural or Artificial Opening (ICD-10-PCS; 2023-12-12)
PROC: BF37ZZZ Magnetic Resonance Imaging (MRI) of Pancreas (ICD-10-PCS; 2023-12-13)
PROC: 02HV33Z Insertion of Infusion Device into Superior Vena Cava, Percutaneous Approach (ICD-10-PCS; 2023-12-13)
PROC: BW40ZZZ Ultrasonography of Abdomen (ICD-10-PCS; 2023-12-16)
PROC: BB24ZZZ Computerized Tomography (CT Scan) of Bilateral Lungs (ICD-10-PCS; 2023-12-20)
PROC: 5A1955Z Respiratory Ventilation, Greater than 96 Consecutive Hours (ICD-10-PCS; principal; 2023-12-21)
PROC: 0BH17EZ Insertion of Endotracheal Airway into Trachea, Via Natural or Artificial Opening (ICD-10-PCS; 2023-12-21)
PROC: 5A12012 Performance of Cardiac Output, Single, Manual (ICD-10-PCS; 2023-12-21)
PROC: B246ZZZ Ultrasonography of Right and Left Heart (ICD-10-PCS; 2023-12-23)
PROC: 3E0336Z Introduction of Nutritional Substance into Peripheral Vein, Percutaneous Approach (ICD-10-PCS; 2023-12-24)
PROC: B020ZZZ Computerized Tomography (CT Scan) of Brain (ICD-10-PCS; 2023-12-27)
PROC: 0D9670Z Drainage of Stomach with Drainage Device, Via Natural or Artificial Opening (ICD-10-PCS; 2023-12-28)
PROC: 30233N1 Transfusion of Nonautologous Red Blood Cells into Peripheral Vein, Percutaneous Approach (ICD-10-PCS; 2023-12-29)
PROC: 30233K1 Transfusion of Nonautologous Frozen Plasma into Peripheral Vein, Percutaneous Approach (ICD-10-PCS; 2023-12-30)
PROC: 30233R1 Transfusion of Nonautologous Platelets into Peripheral Vein, Percutaneous Approach (ICD-10-PCS; 2024-01-01)
PROC: B44HZZZ Ultrasonography of Bilateral Lower Extremity Arteries (ICD-10-PCS; 2024-01-03)
PROC: B54DZZZ Ultrasonography of Bilateral Lower Extremity Veins (ICD-10-PCS; 2024-01-03)
DX: A41.9 Sepsis, unspecified organism (principal); J69.0 Pneumonitis due to inhalation of food and vomit; R65.21 Severe sepsis with septic shock; J96.00 Acute respiratory failure, unspecified whether with hypoxia or hypercapnia; D65 Disseminated intravascular coagulation [defibrination syndrome]; J15.8 Pneumonia due to other specified bacteria; I21.A1 Myocardial infarction type 2; N17.9 Acute kidney failure, unspecified; J98.11 Atelectasis; E27.40 Unspecified adrenocortical insufficiency; I48.20 Chronic atrial fibrillation, unspecified; E87.20 Acidosis, unspecified; K92.2 Gastrointestinal hemorrhage, unspecified; B37.49 Other urogenital candidiasis; K80.20 Calculus of gallbladder without cholecystitis without obstruction; I46.9 Cardiac arrest, cause unspecified; E86.9 Volume depletion, unspecified; M06.8A Other specified rheumatoid arthritis, other specified site; I70.293 Other atherosclerosis of native arteries of extremities, bilateral legs; I13.10 Hypertensive heart and chronic kidney disease without heart failure, with stage 1 through stage 4 chronic kidney disease, or unspecified chronic kidney disease; N18.9 Chronic kidney disease, unspecified; R55 Syncope and collapse; R60.0 Localized edema; E78.5 Hyperlipidemia, unspecified; Z79.01 Long term (current) use of anticoagulants; Z66 Do not resuscitate